=== PATIENT | female | born 1935 | race Caucasian/White ===

== ENCOUNTER 2016-09-03 07:17 | Inpatient (IN) | payer MEDICARE, BC ==
[2016-09-03] MEDS ORDERED: LACTATED RINGERS 1,000 ML IV ONE (08:00)
[2016-09-03] MEDS ORDERED: SCOPOLAMINE 1.5MG PATCH TD SCH (08:00)
[2016-09-03] MEDS ORDERED: PATIENT EDUCATION 1 MISC ONE (08:00)
[2016-09-03] MEDS ORDERED: PATIENT EDUCATION 1 MISC PRN (08:37)
[2016-09-03] MEDS ORDERED: LACTATED RINGERS 1,000 ML IV SCH (09:00)
[2016-09-03] MEDS ORDERED: LIDOCAINE HCL 1% MPF SOL ONE (09:09)
[2016-09-03] MEDS ORDERED: ONDANSETRON HCL 4 MG/2 ML SOL ONE (09:09)
[2016-09-03] MEDS ORDERED: DEXAMETHASONE 20 MG/5 ML (4 MG/ML SOL) ONE (09:09)
[2016-09-03] MEDS ORDERED: METOCLOPRAMIDE HYDROCHLORIDE 5 MG/ML SOL ONE (09:09)
[2016-09-03] MEDS ORDERED: MORPHINE SULFATE 0.5 MG/ML SOL ONE (09:09)
[2016-09-03] MEDS ORDERED: PROPOFOL 500 MG/50 ML EMU IV ONE (09:09)
[2016-09-03] MEDS ORDERED: CEFAZOLIN SODIUM 1 GM PDS ONE (09:10)
[2016-09-03] MEDS ORDERED: MIDAZOLAM 2 MG/2 ML SOL ONE (09:16)
[2016-09-03] MEDS ORDERED: SODIUM CHLORIDE 20 ML 40 ML ONE (09:16)
[2016-09-03] MEDS ORDERED: PROPOFOL 10 MG/ML EMU IV ONE ×2 (10:49→11:28)
[2016-09-03] MEDS: BUPIVACAINE HCL 0.25% MPF 10 ML SOL INFIL ONE ×2 (11:02→11:30)
[2016-09-03] MEDS: BUPIVACAINE LIPOSOME 20 ML SUS ONE ×2 (11:02→11:31)
[2016-09-03] MEDS: TRANEXAMIC ACID 100 MG/ML SOL ONE ×2 (11:35→11:43)
[2016-09-03] MEDS ORDERED: ACETAMINOPHEN 325 MG PO PRN (11:40)
[2016-09-03] MEDS ORDERED: ONDANSETRON HCL 4 MG/2 ML SOL IV PRN (11:40)
[2016-09-03] MEDS ORDERED: BISACODYL 10 MG SUP PR PRN (11:40)
[2016-09-03] MEDS ORDERED: MAGNESIUM HYDROXIDE 30 ML SUS PO PRN (11:40)
[2016-09-03] MEDS ORDERED: FLEET ENEMA PR PRN (11:40)
[2016-09-03] MEDS ORDERED: ALUMINUM/MAGNESIUM 30 ML SUS PO PRN (11:40)
[2016-09-03] MEDS ORDERED: DIAZEPAM 5 MG TAB PO PRN (11:40)
[2016-09-03] MEDS ORDERED: SODIUM CHLORIDE 0.9% 500 ML 500 ML IV PRN (11:40)
[2016-09-03] MEDS ORDERED: ZOLPIDEM TARTRATE 5 MG TAB PO PRN (11:40)
[2016-09-03] MEDS ORDERED: HYDROMORPHONE HCL 2 MG/ML 1 ML SOL IV PRN (11:40)
[2016-09-03] MEDS ORDERED: ONDANSETRON 4 MG ODT BU PRN (11:40)
[2016-09-03] MEDS ORDERED: CEFAZOLIN (PREMIX) 1 GM 1 GM/50 ML SOL IV SCH (11:45)
[2016-09-03] MEDS: DEXTROSE/SALINE 0.45/KCL 20MEQ 1,000 ML/1,000 ML SOL IV SCH (15:45)
[2016-09-03] MEDS: SODIUM CHLORIDE 0.9% FLUSH 10 ML SOL IV SCH ×2 (16:15→21:55)
[2016-09-03] MEDS: CEFAZOLIN (PREMIX) 1 GM SOL IV SCH (18:26)
[2016-09-03] MEDS: GABAPENTIN 300 MG CAP PO SCH (21:54)
[2016-09-03] MEDS: APAP/OXYCODONE 325/5 TAB PO PRN (21:55)
[2016-09-03] MEDS: SENNOSIDES A AND B 8.6 MG TAB PO SCH (21:55)
[2016-09-04] MEDS: CEFAZOLIN (PREMIX) 1 GM SOL IV SCH (02:09)
[2016-09-04] MEDS: DEXTROSE/SALINE 0.45/KCL 20MEQ 1,000 ML/1,000 ML SOL IV SCH (02:09)
[2016-09-04] MEDS: PANTOPRAZOLE SODIUM 40 MG ECT PO SCH (06:30)
[2016-09-04] MEDS: APAP/OXYCODONE 325/5 TAB PO PRN ×4 (06:30→20:27)
[2016-09-04 07:21] LABS: MEAN CORPUSCULAR HGB CONC 33.7 gm/dl (32.0-36.0)
[2016-09-04] MEDS: SODIUM CHLORIDE 0.9% FLUSH 10 ML SOL IV SCH ×3 (07:52→20:31)
[2016-09-04] MEDS ORDERED: FERROUS SULFATE 325 MG TAB PO SCH (09:00)
[2016-09-04] MEDS: LOSARTAN POTASSIUM 50 MG TAB PO SCH (09:18)
[2016-09-04] MEDS: FERROUS SULFATE 325 MG TAB PO SCH (09:18)
[2016-09-04] MEDS: ENOXAPARIN 40 MG SOL SC SCH (09:19)
[2016-09-04] MEDS: GABAPENTIN 300 MG CAP PO SCH ×2 (09:20→20:28)
[2016-09-04] MEDS: SENNOSIDES A AND B 8.6 MG TAB PO SCH (20:28)
[2016-09-05] MEDS: APAP/OXYCODONE 325/5 TAB PO PRN ×4 (01:12→20:12)
[2016-09-05] MEDS: PANTOPRAZOLE SODIUM 40 MG ECT PO SCH (06:51)
[2016-09-05 07:34] LABS: MEAN CORPUSCULAR HGB CONC 34.2 gm/dl (32.0-36.0)
[2016-09-05] MEDS: FERROUS SULFATE 325 MG TAB PO SCH (08:53)
[2016-09-05] MEDS: ENOXAPARIN 40 MG SOL SC SCH (08:53)
[2016-09-05] MEDS: GABAPENTIN 300 MG CAP PO SCH ×2 (08:53→20:13)
[2016-09-05] MEDS: LOSARTAN POTASSIUM 50 MG TAB PO SCH (08:53)
[2016-09-05] MEDS: SODIUM CHLORIDE 0.9% FLUSH 10 ML SOL IV SCH ×3 (08:58→20:14)
[2016-09-05 14:30] LABS: APPEARANCE,URINE Clear; BILIRUBIN,URINE NEGATIVE (NEGATIVE); COLOR,URINE Yellow; GLUCOSE, URINE (UA) NEGATIVE (NEGATIVE); KETONES,URINE NEGATIVE (NEGATIVE); LEUKOCYTE ESTERASE ,URINE NEGATIVE (NEGATIVE); NITRATE,URINE NEGATIVE (NEGATIVE); OCCULT BLOOD,URINE NEGATIVE (NEG-TRACE); UROBILINOGEN,URINE 0.2 (0.2-1.0 EU)
[2016-09-05 15:02] LABS: RBC,URINE 0-2 (0-3AV/HPF)
[2016-09-05] MEDS: SENNOSIDES A AND B 8.6 MG TAB PO SCH (20:13)
[2016-09-06] MEDS: APAP/OXYCODONE 325/5 TAB PO PRN ×2 (03:21→09:51)
[2016-09-06] MEDS: PANTOPRAZOLE SODIUM 40 MG ECT PO SCH (06:33)
[2016-09-06 06:42] VITALS: O2SAT 90
[2016-09-06 07:28] LABS: MEAN CORPUSCULAR HGB CONC 32.9 gm/dl (32.0-36.0)
[2016-09-06] MEDS: FERROUS SULFATE 325 MG TAB PO SCH (09:52)
[2016-09-06] MEDS: ENOXAPARIN 40 MG SOL SC SCH (09:52)
[2016-09-06] MEDS: LOSARTAN POTASSIUM 50 MG TAB PO SCH (09:52)
[2016-09-06] MEDS: GABAPENTIN 300 MG CAP PO SCH (09:52)
[2016-09-06] MEDS: SODIUM CHLORIDE 0.9% FLUSH 10 ML SOL IV SCH ×2 (09:52→15:04)
[2016-09-06 14:38] VITALS: BP 110/72; PULSE 71; RESP 18; TEMP 96.2
== END 2016-09-06 16:50 | disposition home or self-care (01) | DRG 470 ==
LOC: ACUTE CARE 07:17
PROVIDERS: ADMIT Orthopaedic Surgery; ATTEND Orthopaedic Surgery
PROC: F01ZDFZ Gait and/or Balance Assessment using Assistive, Adaptive, Supportive or Protective Equipment (ICD-10-PCS; 2016-09-03)
PROC: F01ZBZZ Bed Mobility Assessment (ICD-10-PCS; 2016-09-03)
PROC: F01ZCZZ Transfer Assessment (ICD-10-PCS; 2016-09-03)
PROC: F02Z1ZZ Dressing Assessment (ICD-10-PCS; 2016-09-03)
PROC: F02Z0ZZ Bathing/Showering Assessment (ICD-10-PCS; 2016-09-03)
PROC: 0SRC0J9 Replacement of Right Knee Joint with Synthetic Substitute, Cemented, Open Approach (ICD-10-PCS; principal; 2016-09-03 10:00)
DX: M17.11 Unilateral primary osteoarthritis, right knee (principal); I10 Essential (primary) hypertension; Z96.651 Presence of right artificial knee joint; K22.70 Barrett's esophagus without dysplasia; K59.00 Constipation, unspecified; R35.0 Frequency of micturition
CPT/HCPCS: 36415; 73560; 81001; 85027; 85049; 94150; 99070; J0690; J1100; J1170; J1650; J2250; J2275; J2405; J2765; A6232; J2001; J2704

== ENCOUNTER 2016-09-17 10:08 | Outpatient (CLI) | payer MEDICARE, BC | END 2016-09-17 10:09 | disposition home or self-care (01) | DRG 561 | LOC: CONVCARE 10:08 | PROVIDERS: ATTEND Orthopaedic Surgery | DX: Z47.1 Aftercare following joint replacement surgery (principal); M25.532 Pain in left wrist; Z96.651 Presence of right artificial knee joint | CPT/HCPCS: 73100; 73560 ==

== ENCOUNTER 2018-06-24 11:18 | Day surgery (SDC) | payer MEDICARE, BC ==
[2018-06-24] MEDS: PHENYLEPHRINE HCL 10% OPHTHAL SOL ONE ×3 (12:00→12:09)
[2018-06-24] MEDS: CYCLOPENTOLATE 1% SOL ONE ×3 (12:00→12:09)
[2018-06-24] MEDS: TROPICAMIDE 1% OPHTH SOL ONE ×3 (12:00→12:09)
[2018-06-24] MEDS ORDERED: KETOROLAC/HOME 0.5% SOL OP ONE ×3 (12:00→12:09)
[2018-06-24] MEDS ORDERED: MOXIFLOXACIN-HOME SOL OP ONE ×2 (12:01→12:06)
[2018-06-24] MEDS: TETRACAINE HCL 0.5 % 1 DROP SOL ONE ×2 (12:09→12:26)
[2018-06-24] MEDS ORDERED: POVIDONE IODINE 5% SOL ONE (12:21)
[2018-06-24] MEDS ORDERED: BSS W/ 0.5 MG P.F. EPI 1 BOTTLE ONE (12:21)
[2018-06-24] MEDS ORDERED: MIDAZOLAM 2 MG/2 ML SOL ONE (12:25)
[2018-06-24] MEDS: LIDOCAINE HCL 2% MPF 10 ML SOL ONE ×2 (12:32→12:34)
[2018-06-24] MEDS ORDERED: ACETAZOLAMIDE 250 MG PO ONE (12:35)
[2018-06-24 12:56] VITALS: BP 149/86; PULSE 72; RESP 20; TEMP 96.8; O2SAT 98
[2018-06-24] MEDS ORDERED: ACETAZOLAMIDE 500 MG CER PO ONE (12:56)
== END 2018-06-24 13:26 | disposition home or self-care (01) | DRG 125 ==
LOC: SURG 11:18
PROVIDERS: ATTEND Ophthalmology
DX: H25.89 Other age-related cataract (principal)
CPT/HCPCS: J2250; A9270-GY

== ENCOUNTER 2018-07-08 10:45 | Day surgery (SDC) | payer MEDICARE, BC | END 2018-07-08 13:12 | disposition home or self-care (01) | LOC: SURG 10:45 ==